=== PATIENT | female | born 1930 | race African-American/Black ===

== ENCOUNTER 2017-05-05 16:21 | Inpatient (IN) | payer OTHER, MEDICAID ==
[~2017-05-05] VITALS: Ht 134.6 cm; Wt 44.5 kg
[2017-05-05 16:21] VITALS: BP_SYST 205
[~2017-05-05 16:21] MED LIST: GABA-529 PO
--- NOTE | 2017-05-05 16:21 | NUR ---
Pt BIB ALS, placed to ER bed 1 and to cardiac cath rn. Pt report given to MARK Leong.
--- NOTE | 2017-05-05 16:25 | NUR ---
ER at bedside examining patient.
--- NOTE | 2017-05-05 16:31 | NUR ---
PER WOODY SNOW PATIENT IS BROUGHT TO ER DUE TO VERY LOW BP.PATIENT IS ALERT AND ORIENTED WITH HARD OF HEARING.NO COMPLAIN OF PAIN OR DISCOMFORT.NO C/O NAUSEA/VOMITING.BILATERAL LUNGS ARE CLEAR.NO OTHER COMPLAIN/INJURIES PER PATIENT OR NOTED
--- NOTE | 2017-05-05 18:00 | NUR ---
WET PROCESS HEAD MILLER TRIED TO DO BLOOD DRAW 4X BUT UNSUCCESSFUL.PATIENT IS HARD STICK; AWARE.
--- NOTE | 2017-05-05 18:02 | NUR ---
PATIENT TO RADIOLOGY FOR CT
[2017-05-05] MEDS ORDERED: ASPIRIN 81 MG TAB.CHEW PO ONE (18:15)
--- NOTE | 2017-05-05 18:35 | NUR ---
PATIENT BACK FROM RADIOLOGY;TRIED TO DO BLOOD DRAW BUT UNSUCCESSFUL
--- NOTE | 2017-05-05 18:38 | NUR ---
Patient began having bradycardia in the 40s. Dr. Herrmann, myself, David EMT to bedside.
--- NOTE | 2017-05-05 18:40 | NUR ---
PATIENT CODED;DAUGHTER AT BEDSIDE AWARE
[2017-05-05] MEDS ORDERED: DEXTROSE 50% JECT 50 ML DISP.SYRIN IVP ONE (18:45)
--- NOTE | 2017-05-05 18:49 | NUR ---
Patient has ROSC. TH not intiated as the family is debating what course of action to take, whether to intubate her or make her DNR; thus aggressive post resusitation care seems inappropriete.
--- NOTE | 2017-05-05 19:05 | NUR ---
Pt is currently being bagged with BVM by RT. Good rise and fall noted when being bagged by BVM. Pt has weak, bilateral femoral pulses at 120 BPM. Bilateral diminished lung sounds noted. Pupils non reactive to light. Pt came in for low blood pressure and more altered than usual per Raymond FLORES. Pt coded earlier and had ROSC. Will continue to monitor via ornament stitcher.
[2017-05-05 19:18] LABS: HEMATOCRIT 27.7 % (36-48); HEMOGLOBIN 8.9 g/dL (12.0-16.0); MEAN CORPUSCULAR HEMOGLOBIN 35 pg (27-31); MEAN CORPUSCULAR HGB CONC 32 % (32-36); MEAN CORPUSCULAR VOLUME 107 fL (79.0-98.0); RED BLOOD CELL COUNT(AUTO) 2.59 MIL/uL (4.2-6.2); RED CELL DISTRIBUTION WIDTH 17.7 % (9.0-15.0); WHITE BLOOD COUNT (AUTO) 14.7 K/uL (4.8-10.8)
--- NOTE | 2017-05-05 19:18 | NUR ---
PATIENT IS CURRENTLY BEING BAGGED AND GETTING READY FOR INTUBATION.WILL ENDORSED ALL CARE TO NEXT SHIFT
--- NOTE | 2017-05-05 19:22 | NUR ---
Vecuronium 7 mg given IV push per Dr. Herrmann orders before intubation.
--- NOTE | 2017-05-05 19:24 | NUR ---
7.5 cm ET tube placed at 24 cm at the teeth on second attempt. Positive colormetric change. Lung sounds auscultated. Good breath sounds on L and diminished on the R side.
--- NOTE | 2017-05-05 19:25 | NUR ---
Pt noted to have swelling and subcutenous emphysema on the throat. Dr. Herrmann made aware.
[2017-05-05 19:30] LABS: ANION GAP 26 (5-15); CALCIUM 7.9 mg/dL (8.4-11.0); CHLORIDE 92 mmol/L (98-107); CREATININE 3.89 mg/dL (0.55-1.30); GLUCOSE 358 mg/dL (70-99); POTASSIUM 4.9 mmol/L (3.5-5.1); SODIUM SERUM 136 mmol/L (136-145); UREA NITROGEN, BLOOD 29 mg/dL (8-21)
[2017-05-05] MEDS ORDERED: PIPERACILLIN/TAZO 3.38 GM in D5W 50 ML IV ONE (19:30)
[2017-05-05] MEDS ORDERED: VANCOMYCIN HCL 1,000 MG in D5W 250 ML IV ONE (19:30)
[2017-05-05] MEDS ORDERED: NACL 0.9% 1,000 ML IV ONE (19:30)
--- NOTE | 2017-05-05 19:45 | NUR ---
Pt blood pressure was low. Antibiotics held at this time. Dr. Whitney made aware.
--- NOTE | 2017-05-05 19:45 | NUR ---
Scanner not working. Full name, , and allergies checked before medication administeration.
[2017-05-05 19:50] LABS: ALANINE AMINOTRANSFERASE 39 U/L (12-78); ALBUMIN 1.2 g/dL (3.4-4.8); ASPARTATE AMINOTRANSFERASE 98 U/L (10-37); TOTAL BILIRUBIN 0.5 mg/dL (0.0-1.0); TOTAL PROTEIN, SERUM 3.1 g/dL (6.4-8.3)
[2017-05-05] MEDS ORDERED: VANCOMYCIN HCL 1000 MG/VIAL IV ONE (19:52)
[2017-05-05] MEDS ORDERED: PIPERACILLIN/TAZOBACTAM 3.375 GM/VIAL (ZOSYN) IV ONE (19:53)
[2017-05-05 19:56] LABS: ATYPICAL LYMPHOCYTES % 0 % (0-0); BAND % (MANUAL) 28 % (0-6); BASOPHILS % (MANUAL) 0 % (0-2); EOSINOPHILS % (MANUAL) 0 % (0-7); LYMPHOCYTES % (MANUAL) 8 % (20-46); METAMYELOCYTES % 4 % (0-0); MONOCYTES % (MANUAL) 2 % (0-11); MYELOCYTES % 2 % (0-0); PLATELET COUNT (AUTO) 52 K/uL (130-430)
[2017-05-05 19:58] LABS: CORRECTED WHITE BLOOD COUNT 12.3 K/uL (4.5-11.0)
--- NOTE | 2017-05-05 20:00 | NUR ---
No readable blood pressure after multiple attempts on different extremities. Dr. Whitney made aware.
--- NOTE | 2017-05-05 20:00 | NUR ---
Mary mooreshakila in ED - 05/05/17 at [email or web address] Whitney explained the DNR process. Family agreed to it. DNR signed by Dr. Whitney and Wade FLORES.
--- NOTE | 2017-05-05 20:05 | NUR ---
Mary martinez in [facility] - 05/06/17 at 0139 by JUAN CAROLS No readable blood pressure after multiple attempts on different extremities. Dr. Whitney made aware.
[2017-05-05 20:11] LABS: INR 2.7 (0.8-1.2); PROTHROMBIN TIME 29.8 SECS (9.5-12.5)
[2017-05-05 20:15] VITALS: BP_SYST 132
--- NOTE | 2017-05-05 20:15 | NUR ---
Dr. Whitney explained the DNR process. Family agreed to it. DNR signed by Dr. Whitney and Wade FLORES.
[2017-05-05] MEDS ORDERED: NOREPINEPHRINE 4 MG/4 ML VIAL IV ONE (20:18)
--- NOTE | 2017-05-05 20:21 | NUR ---
No heart sounds heard. No pulses felt. Pt is asystole on monitor. Dr. Whitney made aware.
--- NOTE | 2017-05-05 20:22 | NUR ---
Time of called by Dr. Whitney. Family made aware.
[2017-05-05 20:25] LABS: BLOOD GAS PH 7.063 (7.350-7.450)
[2017-05-05 20:27] LABS: ABG TOTAL HEMOGLOBIN 9.5 G/dL (12.0-18.0); BLOOD GAS COHb% 0.2 % (0.5-1.5); BLOOD GAS HHB 5.5 % (0.0-6.0); BLOOD O2Hb% 93.4 % (94.0-97.0)
--- NOTE | 2017-05-05 20:33 | NUR ---
[facility] Department of Parking Lot Attendant called contacted by Wade FLORES. Spoke with [facility]. Non Parking Lot Attendant's case.
--- NOTE | 2017-05-05 20:37 | NUR ---
[facility] Wade FLORES. Case # [id number].
[2017-05-05] MEDS ORDERED: DEXTROSE 50% JECT 50 ML DISP.SYRIN IVP PRN (20:45)
[2017-05-05] MEDS ORDERED: INSULIN ASPART 100 UNITS/ML, 10 ML VIAL (NovoLOG) SUBCUT PRN (20:45)
[2017-05-05] MEDS ORDERED: MAGNESIUM SULFATE 50 ML IV PRN (20:45)
[2017-05-05] MEDS ORDERED: MORPHINE 2 MG/ML INJ. SYRINGE IVP PRN (20:45)
[2017-05-05] MEDS ORDERED: ONDANSETRON HCL 4 MG/2 ML VIAL IVP PRN (20:45)
[2017-05-05] MEDS ORDERED: POTASSIUM CHLORIDE 10 MEQ TAB.PRT.SR PO PRN (20:45)
[2017-05-05] MEDS ORDERED: PIPERACILLIN/TAZO 2.25G/DEX-IS 50 ML IV SCH (20:45)
[2017-05-05] MEDS ORDERED: DOCUSATE SODIUM 100 MG CAPSULE PO PRN (20:45)
[2017-05-05] MEDS ORDERED: ZOLPIDEM TARTRATE 5 MG TABLET PO PRN (20:45)
[2017-05-05] MEDS ORDERED: LORazepam 2 MG/ML VIAL IVP PRN (20:45)
[2017-05-05] MEDS ORDERED: ACETAMINOPHEN 325 MG TABLET PO PRN (20:45)
--- NOTE | 2017-05-05 21:37 | NUR ---
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
[2017-05-05] MEDS ORDERED: VECURONIUM BROMIDE 10 MG/VIAL (NORCURON) IV ONE (21:48)
[2017-05-05] MEDS ORDERED: SODIUM BICARBONATE 8.4% JECT 50 MEQ/50 ML SYRINGE IVP ONE (21:48)
[2017-05-05] MEDS ORDERED: NS 1000 ML BAG IV ONE (21:48)
[2017-05-05] MEDS ORDERED: EPINEPHrine JECT 1 MG/10 ML SYR IVP ONE (21:48)
[2017-05-05] MEDS ORDERED: VANCOMYCIN HCL 750 MG in NS 250 ML IV ONE (23:00)
== END 2017-05-05 21:49 | disposition expired | DRG 871 ==
LOC: SED 16:21 → SIC 19:53
PROVIDERS: ADMIT General Practice; ATTEND General Practice
PROC: 5A1935Z Respiratory Ventilation, Less than 24 Consecutive Hours (ICD-10-PCS; principal; 2017-05-05)
PROC: 0BH17EZ Insertion of Endotracheal Airway into Trachea, Via Natural or Artificial Opening (ICD-10-PCS; 2017-05-05)
PROC: 5A12012 Performance of Cardiac Output, Single, Manual (ICD-10-PCS; 2017-05-05)
DX: A41.9 Sepsis, unspecified organism (principal); I21.4 Non-ST elevation (NSTEMI) myocardial infarction; K63.1 Perforation of intestine (nontraumatic); J96.90 Respiratory failure, unspecified, unspecified whether with hypoxia or hypercapnia; N18.6 End stage renal disease; J93.9 Pneumothorax, unspecified; I12.0 Hypertensive chronic kidney disease with stage 5 chronic kidney disease or end stage renal disease; J44.9 Chronic obstructive pulmonary disease, unspecified; E78.5 Hyperlipidemia, unspecified; Z66 Do not resuscitate; E11.22 Type 2 diabetes mellitus with diabetic chronic kidney disease; I46.9 Cardiac arrest, cause unspecified; Z99.2 Dependence on renal dialysis; Z79.899 Other long term (current) drug therapy
CPT/HCPCS: 36415; 36600; 70450-TC; 71010; 80053; 82803-TC; 82962; 83605; 84484; 85007; 85027; 85610-TC; 85730-TC; 87040-TC; 87186-TC; 93005; 96361; 96374; 99291; J0171; J2543; J3370; J3490; J7030; J7050; J7060